=== PATIENT | male | born 1975 | race African-American/Black ===

== ENCOUNTER 2018-01-27 11:27 | Emergency (ER) | payer OTHER ==
[~2018-01-27] VITALS: Ht 175.3 cm; Wt 86.0 kg
[~2018-01-27 11:27] MED LIST: ALBU0.63; FLOVENT110 MCG/A
[2018-01-27 11:35] VITALS: BP 130/67; PULSE 80; RESP 16; TEMP 97.7; O2SAT 99
[2018-01-27] MEDS ORDERED: PROPARACAINE HCL 0.5% OPHT SOLN 15 ML BTL RIGHT EYE ONE (14:00)
--- NOTE | 2018-01-27 14:37 | PD ---
HPI Chief Complaint: Eye Problems/Injury Time Seen by Provider: 13:43 Travel History International Travel<30 days: No Contact w/Intl Traveler<30days: No Traveled to known affect area: No History of Present Illness HPI 43-year-old male presents the ED for evaluation of right eye redness and discharge. Onset a few days ago after he was splashed in the eye by "bloody IV fluids" while working on the floor. He states that he was evaluated at that time decided not to initiate PEP. He states that since that time he has been using warm compresses, some [id number] eyedrops. He states that the eye is a little blurry and red. He denies foreign body sensation, gritty sensation , excessive tearing, vision changes, photophobia, pain with ocular motions. PFSH Past Medical History Asthma: Yes Past Surgical History Surgical History: No Previous Surgery Social History Alcohol Use: Yes Tobacco Use: No Allergies-Medications (Allergen,Severity, Reaction): Coded Allergies: penicillin G (Unverified Allergy, Mild, Anaphylaxis, 01/27/18) Reported Meds & Prescriptions Reported Meds & Active Scripts Active Artificial Tears Opth Drops (Propylene Glycol-Glycerin Opth Drops) 1-0.3% Drops 1-2 Drop RIGHT EYE PRN PRN Polymyxin B-Trimethoprim Opth Drops 10,000-0.1 Unit/Ml-% Soln 1 Drop RIGHT EYE Q6HR 7 Days Review of Systems Except as stated in HPI: all other systems reviewed are Neg Physical Exam Narrative GENERAL: Well-nourished, well-developed -[place] male in no acute distress. SKIN: Focused skin assessment warm/dry. HEAD: Normocephalic. EYES: No scleral icterus. Right eye injected. No drainage. EOMI. PERRLA. FOCUSED RIGHT EYE EXAM: Pressure 22. FUNDUSCOPIC EXAM: The right funduscopic exam appeared within normal limits without papilledema, A-V nicking or blood associated with the optic disc. Fluorescein exam reveals no evidence of corneal abrasion. NECK: Supple, trachea midline. No JVD or lymphadenopathy. CARDIOVASCULAR: Regular rate and rhythm without murmurs, gallops, or rubs. RESPIRATORY: Breath sounds equal bilaterally. No accessory muscle use. GASTROINTESTINAL: Abdomen soft, non-tender, nondistended. MUSCULOSKELETAL: No cyanosis, or edema. BACK: Nontender without obvious deformity. No CVA tenderness. Data Data Last Documented VS Vital Signs Date Time Temp Pulse Resp B/P (MAP) Pulse Ox O2 Delivery O2 Flow Rate FiO2 01/27/18 11:35 97.7 80 16 130/67 (88) 99 Orders Orders Proparacaine 0.5% Opth Soln (Alcaine 0.5 (01/27/18 14:00) Ed Discharge Order (01/27/18 14:39) MDM Medical Decision Making Medical Screen Exam Complete: Yes Emergency Medical Condition: Yes Differential Diagnosis Conjunctivitis versus corneal abrasion versus inflammation versus other Narrative Course 43-year-old male presents the ED for evaluation of right eye redness and discharge. 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 He states that he was evaluated at that time decided not to initiate PEP. He states that since that time he has been using warm compresses, some avuy-bvo-tsprqom eyedrops. He states that the eye is a little blurry and red. He denies foreign body sensation, gritty sensation, excessive tearing, vision changes, photophobia, pain with ocular motions. Vitals reviewed. On exam the eye is injected but pressures are normal, no evidence of corneal abrasion. I suspect he may have conjunctivitis after using cold eyedrops. Will initiate Polytrim drops and refer to ophthalmology. Patient's agreeable to this plan. He is stable and discharged home. Diagnosis Primary Impression: Eye discharge Additional Impression: Eye inflammation Referrals: Leigha Henning MD Additional Instructions: Rest, hydrate. Instill eyedrops as prescribed. Artificial tears kept in the refrigerator may also help to improve your pain symptoms. Nothing else in the eye. Call Dr. Henning's office today for a follow-up appointment. Return to the ED for worsening symptoms or any urgent or emergent medical condition. Med/Other Pt SpecificInfo: Prescription(s) given Scripts Propylene Glycol-Glycerin Opth Drops (Artificial Tears Opth Drops) 1-0.3% Drops 1-2 DROP RIGHT EYE PRN Y for DRY EYE, #15 ML 0 Refills Prov: Shawna Culver MD 01/27/18 Polymyxin B-Trimethoprim Opth Drops (Polymyxin B-Trimethoprim Opth Drops) 10,000 -0.1 Unit/Ml-% Soln 1 DROP RIGHT EYE Q6HR for Mgmt Bacterial Infection for 7 Days, #1 BOTTLE 0 Refills Prov: Shawna Culver MD 01/27/18 Disposition: 01 DISCHARGE HOME Condition: Stable Samantha Ortiz January 27, 2018 14:37
[2018-01-27] MEDS ORDERED: ARTIDRO RIGHT EYE (14:39)
[2018-01-27] MEDS ORDERED: TRIMSOL RIGHT EYE (14:39)
== END 2018-01-27 15:36 | disposition home or self-care (01) ==
LOC: NEPD 11:27
DX: H57.8 Other specified disorders of eye and adnexa (principal); Z77.21 Contact with and (suspected) exposure to potentially hazardous body fluids
CPT/HCPCS: 99283